=== PATIENT | female | born 1965 | race Hispanic/Latino ===

== ENCOUNTER 2020-06-18 17:08 | Inpatient (IN) | payer OTHER ==
[~2020-06-18] VITALS: Ht 157.5 cm; Wt 86.2 kg
[2020-06-18 17:44] LABS: APPEARANCE,URINE Clear (CLEAR); BILIRUBIN,URINE Negative (NEGATIVE); COLOR,URINE Yellow (YELLOW); GLUCOSE, URINE (UA) Negative (NEGATIVE); KETONES,URINE Negative (NEGATIVE); LEUKOCYTE ESTERASE ,URINE Negative (NEGATIVE); NITRATE,URINE Negative (NEGATIVE); OCCULT BLOOD,URINE Negative (NEGATIVE); PH,URINE 6.5 (5.0-8.0); PROTEIN,URINE Negative (NEGATIVE); UROBILINOGEN,URINE 0.2 mg/dL (0.2-1.0)
[2020-06-18 17:45] LABS: BASOPHILS % (AUTO) 0.6 % (0.0-5.0); EOSINOPHILS % (AUTO) 1.7 % (0.0-8.0); HEMATOCRIT 38.8 % (36-48); LYMPHOCYTES % (AUTO) 35.5 % (21.0-51.0); MEAN CORPUSCULAR HEMOGLOBIN 30.1 pg (27.0-33.0); MEAN CORPUSCULAR HGB CONC 34.3 g/dL (32.0-36.0); MEAN CORPUSCULAR VOLUME 87.8 fL (79-99); MONOCYTES % (AUTO) 8.6 % (3.0-13.0); NEUTROPHILS % (AUTO) 53.2 % (40.0-77.0); PLATELET COUNT (AUTO) 226 K/uL (130-400); RED BLOOD CELL COUNT(AUTO) 4.42 MIL/uL (4.00-5.50); RED CELL DISTRIBUTION WIDTH 11.9 % (11.0-15.5); WHITE BLOOD COUNT (AUTO) 5.3 K/uL (4.8-10.8)
[2020-06-18 17:55] LABS: POTASSIUM 3.5 mmol/L (3.5-5.1)
[2020-06-18 17:59] LABS: ALBUMIN 4.2 g/dL (3.5-5.0); BILIRUBIN,TOTAL 0.6 mg/dL (0.2-1.0); TOTAL PROTEIN, SERUM 7.9 g/dL (6.0-8.3)
[2020-06-18] MEDS ORDERED: MAGNESIUM HYDROXIDE 30 ML/UDCUP ONE (18:45)
[2020-06-18] MEDS ORDERED: LIDOCAINE HCL 2% VISCOUS 15 ML UDCUP ONE (18:45)
[2020-06-18] MEDS ORDERED: DICYCLOMINE HCL 20 MG TAB ONE (18:46)
[2020-06-18] MEDS ORDERED: FAMOTIDINE 20MG TAB 20 MG TAB ONE (18:46)
[2020-06-18] MEDS ORDERED: MORPHINE SULFATE 2 MG/ML 1ML SYG IV PRN (19:30)
[2020-06-18] MEDS ORDERED: ONDANSETRON HCL 4 MG/2 ML VIAL IV PRN (19:30)
[2020-06-18] MEDS ORDERED: LACTULOSE 20 GM/30 ML UDCUP PO PRN (19:30)
[2020-06-18] MEDS ORDERED: ACETAMINOPHEN 325 MG TAB PO PRN ×2 (19:30)
[2020-06-18] MEDS ORDERED: SODIUM CHLORIDE 0.9% 50 ML IV ONE (19:40)
[2020-06-18] MEDS ORDERED: ZOSYN 3.375GM+NS 50ML 50 ML IV ONE (19:40)
[2020-06-19] MEDS: ZOSYN 3.375GM+NS 50ML 50 ML IV SCH ×3 (05:00→20:34)
[2020-06-19] MEDS: SODIUM CHLORIDE 0.9% 1000ML 1,000 ML IV SCH ×2 (05:30→18:07)
[2020-06-19] MEDS ORDERED: ZOSYN 3.375GM+NS 50ML 50 ML IV ONE (05:55)
[2020-06-19] MEDS ORDERED: SODIUM CHLORIDE 0.9% 50 ML IV ONE (05:55)
[2020-06-19] MEDS ORDERED: SODIUM CHLORIDE 0.9% 1000ML 1,000 ML IV ONE (06:05)
[2020-06-19 06:10] LABS: BASOPHILS % (AUTO) 0.9 % (0.0-5.0); EOSINOPHILS % (AUTO) 2.8 % (0.0-8.0); HEMATOCRIT 38.6 % (36-48); MEAN CORPUSCULAR HEMOGLOBIN 29.5 pg (27.0-33.0); MEAN CORPUSCULAR HGB CONC 33.9 g/dL (32.0-36.0); MEAN CORPUSCULAR VOLUME 86.9 fL (79-99); MONOCYTES % (AUTO) 9.2 % (3.0-13.0); NEUTROPHILS % (AUTO) 41.9 % (40.0-77.0); PLATELET COUNT (AUTO) 231 K/uL (130-400); RED BLOOD CELL COUNT(AUTO) 4.44 MIL/uL (4.00-5.50); RED CELL DISTRIBUTION WIDTH 12.1 % (11.0-15.5); WHITE BLOOD COUNT (AUTO) 4.2 K/uL (4.8-10.8)
[2020-06-19 06:30] LABS: CREATININE 0.7 mg/dL (0.5-1.5); POTASSIUM 3.9 mmol/L (3.5-5.1)
[2020-06-19] MEDS ORDERED: ENOXAPARIN SODIUM 40 MG/0.4 ML SYRINGE SQ ONE (08:17)
[2020-06-19] MEDS ORDERED: FAMOTIDINE/PF 20 MG/2 ML VIAL IV ONE (08:18)
[2020-06-19] MEDS: FAMOTIDINE/PF 20 MG/2 ML VIAL IV SCH ×2 (09:00→20:34)
[2020-06-19] MEDS: ENOXAPARIN SODIUM 40 MG/0.4 ML SYRINGE SQ SCH (09:00)
[2020-06-19 11:11] VITALS: BP 123/65
[2020-06-19 16:14] VITALS: BP 131/80
[2020-06-19 18:42] VITALS: BP 119/69
[2020-06-19 23:07] VITALS: BP 139/76
[2020-06-20] MEDS: SODIUM CHLORIDE 0.9% 1000ML 1,000 ML IV SCH ×2 (01:30→04:41)
[2020-06-20 03:32] VITALS: BP 113/57
[2020-06-20] MEDS: ZOSYN 3.375GM+NS 50ML 50 ML IV SCH ×2 (04:40→13:00)
[2020-06-20 07:12] VITALS: BP 125/75
[2020-06-20 08:49] LABS: BASOPHILS % (AUTO) 1.1 % (0.0-5.0); EOSINOPHILS % (AUTO) 3.2 % (0.0-8.0); HEMATOCRIT 40.6 % (36-48); MEAN CORPUSCULAR HEMOGLOBIN 29.5 pg (27.0-33.0); MEAN CORPUSCULAR HGB CONC 33.5 g/dL (32.0-36.0); MEAN CORPUSCULAR VOLUME 88.1 fL (79-99); MONOCYTES % (AUTO) 6.4 % (3.0-13.0); NEUTROPHILS % (AUTO) 44.8 % (40.0-77.0); PLATELET COUNT (AUTO) 233 K/uL (130-400); RED BLOOD CELL COUNT(AUTO) 4.61 MIL/uL (4.00-5.50); RED CELL DISTRIBUTION WIDTH 12.1 % (11.0-15.5); WHITE BLOOD COUNT (AUTO) 3.7 K/uL (4.8-10.8)
[2020-06-20] MEDS: FAMOTIDINE/PF 20 MG/2 ML VIAL IV SCH (08:58)
[2020-06-20] MEDS: ENOXAPARIN SODIUM 40 MG/0.4 ML SYRINGE SQ SCH (08:59)
[2020-06-20 09:14] LABS: CREATININE 0.9 mg/dL (0.5-1.5); POTASSIUM 4.1 mmol/L (3.5-5.1)
[2020-06-20 11:12] VITALS: BP 96/59
== END 2020-06-20 13:00 | disposition home or self-care (01) | DRG 446 ==
LOC: EDH 17:08 → UNDOADMOB 17:09 → INTOOBSV 17:09 → EDHIP 17:09 → OBSVTOIN 17:09 → EDHIP 06-19 10:50 → WSH 06-19 10:50 → UNDODISIN 06-20 13:00
PROVIDERS: ADMIT Internal Medicine; ATTEND Internal Medicine
DX: K80.20 Calculus of gallbladder without cholecystitis without obstruction (principal); E66.9 Obesity, unspecified; I10 Essential (primary) hypertension; Z20.822 Contact with and (suspected) exposure to COVID-19; Z68.34 Body mass index [BMI] 34.0-34.9, adult; Z90.721 Acquired absence of ovaries, unilateral; Z83.3 Family history of diabetes mellitus; Z82.49 Family history of ischemic heart disease and other diseases of the circulatory system
CPT/HCPCS: 36415; 71045; 76705; 78226; 80048; 80053; 81003; 83690; 84484; 85025; 87426; 93005; A9537; G0378; J1650; J2543; J3490; J7030; U0003